=== PATIENT | male | born 1955 | race African-American/Black ===

== ENCOUNTER 2019-07-23 03:24 | Emergency (ER) | payer OTHER ==
[~2019-07-23] VITALS: Ht 188 cm; Wt 104.3 kg
[~2019-07-23 03:24] MED LIST: CARV6.252 PO; Lisinopril PO
[2019-07-23] MEDS ORDERED: LOSA100T31 PO (03:36)
--- NOTE | 2019-07-23 03:52 | NUR ---
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
--- NOTE | 2019-07-23 03:56 | NUR ---
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
[2019-07-23] MEDS ORDERED: ALBUTEROL SULFATE 2.5 MG/3 ML NEBU ONE (04:13)
[2019-07-23] MEDS ORDERED: IPRATROPIUM BROMIDE 0.5 MG/2.5 ML NEBU ONE (04:13)
[2019-07-23] MEDS ORDERED: ALBUTEROL SULFATE 2.5 MG/3 ML NEBU NEB ONE (04:15)
[2019-07-23] MEDS ORDERED: IPRATROPIUM BROMIDE 0.5 MG/2.5 ML NEBU NEB ONE (04:15)
--- NOTE | 2019-07-23 04:15 | NUR ---
RT AT BEDSIDE
--- NOTE | 2019-07-23 04:15 | NUR ---
LAB AT BEDSIDE
--- NOTE | 2019-07-23 04:18 | NUR ---
PT ABLE TO TOLERATE BREATHING TREATMENT
[2019-07-23 04:27] LABS: BASOPHILS % (AUTO) 0.2 % (0.0-2.0); EOSINOPHILS # (AUTO) 0.2 K/uL (0.0-0.7); EOSINOPHILS % (AUTO) 2.6 % (0.0-7.0); HEMATOCRIT 44.7 % (36.7-47.1); HEMOGLOBIN 15.1 g/dL (12.5-16.3); LYMPHOCYTES # (AUTO) 1.5 K/uL (20.0-40.0); LYMPHOCYTES % (AUTO) 25.5 % (20.5-51.5); MEAN CORPUSCULAR HEMOGLOBIN 31.4 uug (23.8-33.4); MEAN CORPUSCULAR HGB CONC 34 g/dL (32.5-36.3); MONOCYTES # (AUTO) 0.5 K/uL (2.0-10.0); NEUTROPHILS # (AUTO) 3.8 K/uL (1.8-8.9); NEUTROPHILS % (AUTO) 62.7 % (38.5-71.5); PLATELET COUNT (AUTO) 156 K/uL (152-348); WHITE BLOOD COUNT (AUTO) 6.1 K/uL (3.6-10.2)
[2019-07-23 04:28] LABS: CREATININE 1.2 mg/dL (0.6-1.3); POTASSIUM 3.8 mmol/L (3.5-5.1)
[2019-07-23] MEDS ORDERED: DOXYCYCLINE HYCLATE 100 MG TABLET PO ONE (05:00)
--- NOTE | 2019-07-23 05:12 | NUR ---
Patient discharged to home in stable conditon. Written and verbal after care instructions given. Patient verbalizes understanding of instructions. AMBULATORY W/ STABLE GAIT ALL BELONGINGS W/ PT
[2019-07-23 05:14] VITALS: BP 149/95
== END 2019-07-23 05:16 | disposition home or self-care (01) ==
LOC: ER 03:28
DX: J18.9 Pneumonia, unspecified organism (principal); Z79.899 Other long term (current) drug therapy; Z90.89 Acquired absence of other organs
CPT/HCPCS: 36415; 71046; 85025; A4663; J3590

== ENCOUNTER 2019-07-24 10:03 | Emergency (ER) | payer OTHER ==
[~2019-07-24] VITALS: Ht 188 cm; Wt 103.9 kg
[~2019-07-24 10:03] MED LIST changes: -CARV6.252 PO; +LOSA100T31 PO; -Lisinopril PO
--- NOTE | 2019-07-24 10:21 | NUR ---
Patient discharged to home in stable conditon. Written and verbal after care instructions given. Patient verbalizes understanding of instructions.
== END 2019-07-24 10:22 | disposition home or self-care (01) ==
LOC: ER 10:03
DX: R05 Cough (principal); Z90.89 Acquired absence of other organs; Z79.899 Other long term (current) drug therapy
CPT/HCPCS: A4663

== ENCOUNTER 2019-08-11 11:57 | Emergency (ER) | payer OTHER ==
[~2019-08-11] VITALS: Ht 188 cm; Wt 105.2 kg
--- NOTE | 2019-08-11 12:39 | NUR ---
Patient discharged to home in stable conditon. Written and verbal after care instructions given. Patient verbalizes understanding of instructions.pt walks in stady gait.
== END 2019-08-11 12:47 | disposition home or self-care (01) ==
LOC: ER 11:59
DX: J20.9 Acute bronchitis, unspecified (principal); Z90.89 Acquired absence of other organs; Z79.899 Other long term (current) drug therapy
CPT/HCPCS: A4663

== ENCOUNTER 2020-01-21 22:22 | Emergency (ER) | payer OTHER ==
[~2020-01-21] VITALS: Ht 188 cm; Wt 108.4 kg
[2020-01-21 23:10] VITALS: BP 125/83
--- NOTE | 2020-01-21 23:11 | NUR ---
Patient discharged to home in stable condition. Written and verbal after care instructions given. Patient verbalizes understanding of instructions. Stressed follow up or return to ER for worsening s/s.
== END 2020-01-21 23:11 | disposition home or self-care (01) ==
LOC: ER 22:26
DX: L98.499 Non-pressure chronic ulcer of skin of other sites with unspecified severity (principal); Z82.49 Family history of ischemic heart disease and other diseases of the circulatory system
CPT/HCPCS: A4663

== ENCOUNTER 2021-08-05 05:05 | Emergency (ER) | payer OTHER ==
[~2021-08-05] VITALS: Ht 188 cm; Wt 108.4 kg
[2021-08-05 05:54] LABS: MEAN CORPUSCULAR HEMOGLOBIN 32.7 uug (23.8-33.4); MEAN CORPUSCULAR VOLUME 93.8 fL (73.0-96.2); PLATELET COUNT (AUTO) 198 K/uL (152-348)
[2021-08-05 06:12] LABS: CREATININE 1.4 mg/dL (0.6-1.3); POTASSIUM 3.9 mmol/L (3.5-5.1)
[2021-08-05] MEDS ORDERED: OXYM15MI4 NS (06:28)
[2021-08-05] MEDS ORDERED: CODE10LI PO (06:28)
[2021-08-05 06:43] VITALS: BP 149/93
== END 2021-08-05 06:44 | disposition home or self-care (01) ==
LOC: ER 05:08
DX: J06.9 Acute upper respiratory infection, unspecified (principal); B97.4 Respiratory syncytial virus as the cause of diseases classified elsewhere; R00.0 Tachycardia, unspecified; I12.9 Hypertensive chronic kidney disease with stage 1 through stage 4 chronic kidney disease, or unspecified chronic kidney disease; N18.2 Chronic kidney disease, stage 2 (mild); Z79.899 Other long term (current) drug therapy
CPT/HCPCS: 36415; 70030-TC; 71045; 85025; 93005; A4663

== ENCOUNTER 2023-01-20 06:26 | Emergency (ER) | payer OTHER ==
[~2023-01-20] VITALS: Ht 188 cm; Wt 113.4 kg
[~2023-01-20 06:26] MED LIST changes: +CODE10LI PO; +OXYM15MI4 NS
--- NOTE | 2023-01-20 07:50 | NUR ---
PT IS IN ROOM #3. DR GRAHAM EVALUATED THE PT.
[2023-01-20] MEDS ORDERED: AZIT250T13 PO (08:22)
[2023-01-20] MEDS ORDERED: BENZ150C4 PO (08:22)
[2023-01-20 08:30] VITALS: BP 141/78
--- NOTE | 2023-01-20 08:30 | NUR ---
PT WAS D/C'd TO HOME. D/C INSTRUCTIONS GIVEN TO THE PT BY DR SIMMONS.
== END 2023-01-20 08:31 | disposition home or self-care (01) ==
LOC: ER 06:34
DX: J40 Bronchitis, not specified as acute or chronic (principal); R07.89 Other chest pain; I10 Essential (primary) hypertension; Z90.89 Acquired absence of other organs; Z79.2 Long term (current) use of antibiotics; Z79.899 Other long term (current) drug therapy
CPT/HCPCS: 71046; A4663

== ENCOUNTER 2023-06-12 19:04 | Emergency (ER) | payer OTHER ==
[~2023-06-12] VITALS: Ht 188 cm; Wt 113.4 kg
[~2023-06-12 19:04] MED LIST changes: +AZIT250T13 PO; +BENZ150C4 PO
[2023-06-12] MEDS ORDERED: AZIT250T13 PO (19:24)
[2023-06-12] MEDS ORDERED: OXYM15MI4 NS (19:24)
[2023-06-12] MEDS ORDERED: ACET10SO PO (19:24)
[2023-06-12] MEDS ORDERED: PROM6.256 PO (19:33)
[2023-06-12 19:46] VITALS: BP 158/99; O2SAT 97
== END 2023-06-12 19:46 | disposition home or self-care (01) ==
LOC: ER 19:06
DX: J40 Bronchitis, not specified as acute or chronic (principal); Z90.89 Acquired absence of other organs; Z79.2 Long term (current) use of antibiotics; Z79.899 Other long term (current) drug therapy
CPT/HCPCS: A4606; A4663

== ENCOUNTER 2023-08-30 01:00 | Emergency (ER) | payer OTHER ==
[~2023-08-30 01:00] MED LIST changes: +ACET10SO PO; +PROM6.256 PO
== END 2023-08-30 01:41 | disposition left against medical advice (07) ==
LOC: ER 01:03
DX: R11.0 Nausea (principal); Z53.21 Procedure and treatment not carried out due to patient leaving prior to being seen by health care provider

== ENCOUNTER 2025-03-16 21:55 | Emergency (ER) | payer OTHER ==
[~2025-03-16] VITALS: Ht 188 cm; Wt 106.6 kg
[2025-03-16 22:00] VITALS: BP 162/140
[2025-03-17] MEDS ORDERED: NIRM1TAB6 PO (00:18)
[2025-03-17 02:09] VITALS: BP 155/95; O2SAT 98
== END 2025-03-17 01:10 | disposition home or self-care (01) ==
LOC: ER 21:55
DX: U07.1 COVID-19 (principal); J02.9 Acute pharyngitis, unspecified; R07.9 Chest pain, unspecified; Z79.899 Other long term (current) drug therapy; Z88.7 Allergy status to serum and vaccine; Z90.89 Acquired absence of other organs; Z60.2 Problems related to living alone
CPT/HCPCS: 71045; 86403; 87070; A4606; A4663

== ENCOUNTER 2025-06-30 05:27 | Emergency (ER) | payer OTHER ==
[~2025-06-30] VITALS: Ht 188 cm; Wt 106.6 kg
[~2025-06-30 05:27] MED LIST changes: -BENZ150C4 PO; -CODE10LI PO; +CODE10LI2 PO; -LOSA100T31 PO; +LOSA100T32 PO; +NIRM1TAB6 PO; -PROM6.256 PO; +[UNRECOGNIZED DRUG - CODE] PO; +[UNRECOGNIZED DRUG - CODE] PO
[2025-06-30 05:29] VITALS: BP 172/108
[2025-06-30] MEDS ORDERED: GUAI5SYR4 PO (05:56)
[2025-06-30] MEDS ORDERED: AMOX500C2 PO (05:56)
[2025-06-30 06:03] VITALS: BP 168/95; O2SAT 98
== END 2025-06-30 06:07 | disposition home or self-care (01) ==
LOC: ER 05:31
DX: J31.0 Chronic rhinitis (principal); M54.50 Low back pain, unspecified; I11.9 Hypertensive heart disease without heart failure; G89.29 Other chronic pain; Z79.899 Other long term (current) drug therapy; Z88.7 Allergy status to serum and vaccine; Z90.89 Acquired absence of other organs
CPT/HCPCS: A4606; A4663

== ENCOUNTER 2025-07-22 01:08 | Emergency (ER) | payer OTHER ==
[~2025-07-22] VITALS: Ht 188 cm; Wt 108.0 kg
[~2025-07-22 01:08] MED LIST changes: +AMOX500C2 PO; +GUAI5SYR4 PO
[2025-07-22 01:16] VITALS: BP 156/84
[2025-07-22] MEDS ORDERED: PROM118S5 PO (01:52)
[2025-07-22] MEDS ORDERED: GUAI118S13 PO (01:52)
[2025-07-22 02:04] VITALS: BP 150/78; O2SAT 95
== END 2025-07-22 02:06 | disposition home or self-care (01) ==
LOC: ER 01:15
DX: R05.9 Cough, unspecified (principal); R09.81 Nasal congestion; I11.0 Hypertensive heart disease with heart failure; G89.29 Other chronic pain; Z79.899 Other long term (current) drug therapy; Z88.7 Allergy status to serum and vaccine; Z90.89 Acquired absence of other organs
CPT/HCPCS: A4606; A4663